=== PATIENT | male | born 1965 | race Caucasian/White ===

== ENCOUNTER 2016-08-06 11:59 | Emergency (ER) | payer OTHER | END 2016-08-06 13:12 | disposition home or self-care (01) | LOC: FER 11:59 | DX: H10.9 Unspecified conjunctivitis (principal); Z88.0 Allergy status to penicillin | CPT/HCPCS: 99283 ==

== ENCOUNTER 2020-07-03 14:02 | Inpatient (IN) | payer OTHER ==
[2020-07-03 15:39] LABS: BASOPHIL 0.5 % (0-2); EOSINOPHIL 0.9 % (0-5); HCT 54.9 % (42.0-52.0); HGB 17.2 g/dl (13.2-18.0); LYMPHOCYTE 17.5 % (15-48); MCH 29.3 pg (25.0-31.0); MCHC 31.3 g/dL (32.0-36.0); MCV 93.5 fL (78.0-100.0); MONOCYTE 10.2 % (0-12); MPV 13.8 fL (6.0-9.5); NEUTROPHIL 70.6 % (41-80); NRBC 0; PLT 144 K/uL (150-400); RBC 5.87 M/uL (4.70-6.00); WBC 11.5 K/uL (4.0-10.5)
[2020-07-03 15:46] LABS: ALBUMIN 3.2 g/dL (3.4-5.0); BILIRUBIN - TOTAL 0.6 mg/dL (0.2-1.0); CREATININE 0.79 mg/dL (0.67-1.17); POTASSIUM 4.6 mmol/L (3.5-5.1); TOTAL PROTEIN 6.2 g/dL (6.4-8.2)
[2020-07-04 06:04] LABS: BUN/CREAT RATIO (CALC) 21.2 RATIO; CREATININE 0.8 mg/dL (0.67-1.17); POTASSIUM 5.1 mmol/L (3.5-5.1)
--- NOTE | 2020-07-04 10:51 | NUR ---
PT. IS . HE HAS BEEN ON FMLA SINCE SEPTEMBER 2019. HE HAS SINCE LOST HIS JOB. HE APPLIED FOR DISABILITY IN MARCH 2020. HE HAS HOME O2 AND NEUBLIZER. HE IS INDEPENDENT. GAVE PT. INFORMATION ON HOW TO APPLY FOR FINANCIAL ASSISTANCE ON DALIRESP. PT. REPORTS THAT [employer] WILL NOT AUTHROIZE THE MEDICATION.
== END 2020-07-05 20:30 | disposition other institution (70) | DRG 291 ==
LOC: FER 14:02 → FMS 16:50
PROVIDERS: Physician Assistant; ADMIT Allergy & Immunology Allergy
DX: I50.23 Acute on chronic systolic (congestive) heart failure (principal); J96.01 Acute respiratory failure with hypoxia; J44.1 Chronic obstructive pulmonary disease with (acute) exacerbation; F17.200 Nicotine dependence, unspecified, uncomplicated; I44.7 Left bundle-branch block, unspecified; I25.10 Atherosclerotic heart disease of native coronary artery without angina pectoris; Z20.822 Contact with and (suspected) exposure to COVID-19; Z88.0 Allergy status to penicillin; Z98.41 Cataract extraction status, right eye; Z98.42 Cataract extraction status, left eye; Z79.899 Other long term (current) drug therapy; Z98.890 Other specified postprocedural states
CPT/HCPCS: 36415; 71045; 80048; 80053; 83880; 84484; 85025; 93005; 94010; 94640; J1650; J1940; J2930; U0002

== ENCOUNTER 2021-11-10 05:16 | Day surgery (SDCO) | payer OTHER ==
[~2021-11-10] VITALS: Ht 182.9 cm; Wt 69.4 kg
[2021-11-10 05:41] LABS: INR 1.39 (0.9-1.2); PROTHROMBIN TIME 16.6 SECONDS (11.9-13.9)
[2021-11-10 05:43] LABS: BASOPHIL 0.3 % (0-2); EOSINOPHIL 0.5 % (0-5); HCT 57.6 % (42.0-52.0); LYMPHOCYTE 8.4 % (15-48); MCH 28.7 pg (25.0-31.0); MONOCYTE 5.8 % (0-12); MPV 13.1 fL (6.0-9.5); NEUTROPHIL 84.5 % (41-80); NRBC 0; RBC 6.62 M/uL (4.70-6.00); RDW 13.6 % (11.5-14.0); WBC 13.2 K/uL (4.0-10.5)
[2021-11-10 06:12] LABS: PLT 118 K/uL (150-400)
[2021-11-10 06:30] LABS: ALBUMIN 4.1 g/dL (3.4-5.0); BUN/CREAT RATIO (CALC) 20.3 RATIO; CREATININE 0.59 mg/dL (0.67-1.17); GLOBULIN (CALCULATION) 3.8 g/dL; POTASSIUM 3.9 mmol/L (3.5-5.1); TOTAL PROTEIN 7.9 g/dL (6.4-8.2)
[2021-11-10] MEDS ORDERED: LASIX20 MG PO (13:00)
[2021-11-10] MEDS ORDERED: VENTOLIN (2.5 MG/3 M INH (13:00)
[2021-11-10] MEDS ORDERED: SYMBICORT 16010.2 GM INH (13:02)
[2021-11-10] MEDS ORDERED: DALIRESP500 MCG PO (13:03)
[2021-11-10] MEDS ORDERED: SPIRIVA18 MCG INH (13:04)
[2021-11-10] MEDS ORDERED: ENTRESTO 24 MG1 EACH PO (13:05)
[2021-11-10] MEDS ORDERED: CARVEDILOL6.25 MG PO (13:06)
== END 2021-11-10 21:30 | disposition other institution (70) ==
LOC: FER 05:16 → FMS 09:02 → FER 10:42 → FMS 21:30
PROVIDERS: Emergency Medicine; ADMIT Internal Medicine
DX: K56.600 Partial intestinal obstruction, unspecified as to cause (principal); I42.8 Other cardiomyopathies; I11.0 Hypertensive heart disease with heart failure; I50.9 Heart failure, unspecified; J44.9 Chronic obstructive pulmonary disease, unspecified; F17.210 Nicotine dependence, cigarettes, uncomplicated; N28.9 Disorder of kidney and ureter, unspecified; E83.52 Hypercalcemia; I25.10 Atherosclerotic heart disease of native coronary artery without angina pectoris; Z79.899 Other long term (current) drug therapy; Z88.0 Allergy status to penicillin; Z88.5 Allergy status to narcotic agent; Z95.810 Presence of automatic (implantable) cardiac defibrillator; Z20.822 Contact with and (suspected) exposure to COVID-19
CPT/HCPCS: 36415; 74250; 80053; 83690; 84484; 85025; 85610; 85730; 93005; 94640; 94760; C9113; G0378; J0780; J1170; J2354; J2405; J7030; Q9967; U0002